=== PATIENT | male | born 1950 | race Caucasian/White ===

== ENCOUNTER 2020-06-21 17:39 | Outpatient (CLI) | payer MEDICARE ==
[2020-06-21 18:11] LABS: INTERNATIONAL NORMALIZED RATIO 1.02 (0.93-1.1); PROTHROMBIN TIME 10.8 Seconds (9.6-11.5)
== END 2020-06-21 23:59 | disposition home or self-care (01) ==
LOC: LAB 17:39
PROVIDERS: ATTEND Urology
DX: D09.0 Carcinoma in situ of bladder (principal)
CPT/HCPCS: 36415; 85610; 85730